=== PATIENT | male | born 1990 | race African-American/Black ===

== ENCOUNTER 2023-07-16 12:44 | Emergency (ER) | payer OTHER ==
[~2023-07-16] VITALS: Ht 190.5 cm; Wt 75.0 kg
[2023-07-16 14:58] VITALS: BP 128/80; PULSE 73; RESP 16; TEMP 97.6; O2SAT 97
== END 2023-07-16 16:10 | disposition home or self-care (01) ==
LOC: ER 12:50
DX: S62.612A Displaced fracture of proximal phalanx of right middle finger, initial encounter for closed fracture (principal); X58.XXXA Exposure to other specified factors, initial encounter; Y93.89 Activity, other specified; Y92.89 Other specified places as the place of occurrence of the external cause; Y99.8 Other external cause status
CPT/HCPCS: 73130